=== PATIENT | female | born 1965 | race Caucasian/White ===

== ENCOUNTER 2022-06-28 12:51 | Outpatient (CLI) | payer MEDICARE ==
--- NOTE | 2022-06-29 10:06 | Ultrasound Report ---
LIMITED ULTRASOUND OF LEFT BREAST: 06/28/2022 CLINICAL: Patient returns today to evaluate an asymmetry in the left breast. Palpable left breast lum p. Comparison is made to exams dated: 06/28/2022 mammogram and 04/18/2008 mammogram - [facility]. Color flow and real-time ultrasound of the left breast 3 o'clock, and retroareolar regions were perf ormed. Alcantara scale images of the real-time examination were reviewed. There is a 0.7 cm x 0.9 cm x 0.4 cm oval possible complex fluid collection with a thickened wall in t he left breast at 6 o'clock in the retroareolar region. This oval fluid collection is of mixed echog enicity. This correlates as palpated and with mammography findings. Color flow imaging demonstrates that there is increased vascularity in surrounding tissue. There also is a 0.9 cm x 0.8 cm x 0.3 cm normal lymph node in the left breast at 3 o'clock posterior depth 4 cm from the nipple. This node has a thin, normal cortex. This correlates with mammography fin dings. Color flow imaging demonstrates that there is no vascularity present. IMPRESSION: PROBABLY BENIGN The 0.7 cm x 0.9 cm x 0.4 cm oval fluid collection in the left breast at 6 o'clock in the retroareola r region is probably resolving mastitis or Lugo gland infection and is probably benign. Patient reports resolving inflammatory-sounding symptoms. A follow-up ultrasound in 3 months is recommended to document resolution. The 0.9 cm x 0.8 cm x 0.3 cm normal lymph node in the left breast at 3 o'clock posterior depth is ryan ign. A follow-up left ultrasound in 3 months is recommended. Findings and recommendations were conveyed to the patient at time of exam. This exam was interpreted at Station ID: [id number]. Electronically Signed By: Yamile calderon/:06/28/2022 14:32:24 Ultrasound BI-RADS: 3 Probably benign BI-RADS CATEGORY: (3) - 3 Ultrasound [id number] 3 month follow-up LATERALITY: (L)
--- NOTE | 2022-06-29 10:06 | Mammography Report ---
BILATERAL DIGITAL DIAGNOSTIC MAMMOGRAM 3D/2D WITH SPOT COMPRESSION: 06/28/2022 CLINICAL: Baseline exam. Palpable left breast lump. Due for bilateral. Comparison is made to exam dated: 04/18/2008 mammogram - [facility]. There are scattered areas of fibroglandular density in both breasts (category b / 25%-50% glandular t issue). There is an irregular low density asymmetry with an indistinct margin in the left breast at 6 o'clock anterior depth. This correlates as palpated. There also is a new oval mass with an obscured and circumscribed margin in the left breast at 3 o'primo ck posterior depth. This is seen in additional views. No other significant masses, calcifications, or other findings are seen in either breast. IMPRESSION: INCOMPLETE: NEEDS ADDITIONAL IMAGING EVALUATION The irregular low density asymmetry in the left breast at 6 o'clock anterior depth is indeterminate. An ultrasound is recommended. The new oval mass in the left breast at 3 o'clock posterior depth most likely is a cyst, a lymph node , or a fibroadenoma and is indeterminate. An ultrasound is recommended. Ultrasound of both areas was performed immediately following this exam. Based on the Tyrer Cuzick model (a risk assessment model) the patients lifetime risk is 6.2% and her 10 year risk is 2.1%. According to the ACR, ACS, and NCCN guidelines, an annual breast MRI exam froylan g with mammogram is recommended if the patients lifetime risk is 20% or greater. This exam was interpreted at Station ID: [id number]. NOTE: For mammograms, a report in lay terms will be sent to the patient. Approximately 15% of breast malignancies will not be visualized mammographically. In the management of a palpable breast mass, a negative mammogram must not discourage biopsy of a clinically suspicious lesion. Electronically Signed By: Yamile calderon/:06/28/2022 13:52:07 ACR BI-RADS Category 0: Incomplete 3340F PARENCHYMAL PATTERN: (A) - The breast(s) demonstrate(s) scattered fibroglandular densities. BI-RADS CATEGORY: (0) - 0 Ultrasound [id number] Immediate follow-up LATERALITY: (B)
== END 2022-06-28 12:52 | disposition home or self-care (01) ==
LOC: DI 12:51
PROVIDERS: ATTEND Nurse Practitioner
DX: N63.25 Unspecified lump in the left breast, overlapping quadrants (principal)